=== PATIENT | female | born 1990 | race Caucasian/White ===

== ENCOUNTER 2017-03-28 17:54 | Emergency (ER) | payer OTHER ==
[2017-03-28 18:45] VITALS: PULSE 79
[2017-03-28 18:50] VITALS: PULSE 79
[2017-03-28 18:55] VITALS: PULSE 80
--- NOTE | 2017-03-28 19:03 | PD ---
HPI Chief Complaint contractions, bleeding Date Seen: Mar 28, 2017 Time Seen: 18:30 Travel History International Travel<30 Days: No Contact w/Intl Traveler<30Days: No Known Affected Area: No History of Present Illness HPI PT is a 26 y/o G1 with IUP at 30.4 wks who presents for evaluation of contractions and bleeding. PT states she began to feel some contractions around 4 pm, somewhat irregular and approximately q 10 minutes. She also noted bright red blood on tissue when she went to bathroom, no mucous present. No blood in underwear, but noted again at next void. Pt denies LOF. +FM. reports intercourse yesterday around 4 pm. Denies any complications during the Para: 0 : 1 History Past Medical History Medical History: Denies Significant Hx Past Surgical History Surgical History: No Previous Surgery Family History Family History: Negative Social History Alcohol Use: No Tobacco Use: No Substance Abuse: No Allergies-Medications (Allergen,Severity, Reaction): Coded Allergies: No Known Allergies (Unverified , 03/28/17) Narrative Medication vitamins Review of Systems General / Constitutional: No: Fever, Weight Gain, Weight Loss, Chills, Other Eyes: No: Diploplia, Blurred Vision, Visual changes, Pain, Photophobia, Other HENT: No: Headaches, Vertigo, Dental Difficulties, Lightheadedness, Other Cardiovascular: No: Irregular Rhythm, Chest Pain or Discomfort, Palpitations, Tachycardia, Syncope, Varicosities, Edema, Cyanosis, Other Respiratory: No: Cough, Short of Breath, Wheezing, Other Gastrointestinal: No: Nausea, Vomiting, Diarrhea, Abdominal Pain, Hematemesis, Hematochezia, Constipation, Changes in Bowel Habits, Indigestion, Loss of Appetite, Other Genitourinary: No: Urgency, Frequency, Dysuria, Nocturia, Hematuria, Decreased Urinary Output, Oliguria, Hesitancy, Dribbling, Incontinence, Pelvic Pain, Dyspareunia, Discharge, Menorrhagia, Vaginal Bleeding, Other Musculoskeletal: No: Limited ROM, Weakness, Cramping, Edema, Pain, Other Skin: No Rash, No Itching, No Dryness, No Lumps, No Change in Pigmentation, No Change in Nails, No Alopecia, No Lesions, No Breast Lumps, No Breast Tenderness , No Breast Swelling, No Other Neurologic: No: Weakness, Dizziness, Syncope, Focal Abnormalities, Coordination Problem, Headache, Slurred Speech, Seizures, Other Psychiatric: No: Anxiety, Depression, Suicidal Ideations, Disorder of Thought, Mood Disorder, Substance Abuse, Homicidal Ideation, Other Endocrine: No: Heat Intolerance, Cold Intolerance, Polydipsia, Polyuria, Other Hematologic/Lymphatic: No Easy Bruising, No Lymph Node Enlargement, No Other Physical Exam 119/70, 81, 17, 98.3 Narrative GENERAL: Well-nourished, well-developed patient. SKIN: Warm and dry. HEAD: Normocephalic and atraumatic. EYES: No scleral icterus. No injection or drainage. ENT: No nasal drainage noted. Mucous membranes pink. Airway patent. NECK: Supple, trachea midline. No JVD. CARDIOVASCULAR: Regular rate and rhythm without murmurs, gallops, or rubs. RESPIRATORY: Breath sounds equal bilaterally. No accessory muscle use. ABDOMEN/GI: Abdomen soft, non-tender, bowel sounds present, no rebound, no guarding Gravid GENITOURINARY: External Genitalia: intact and normal in appearance BUS glands: [wnl] Cervix: visually closed, no blood in vault, no active bleeding from cervix Dilatation: fintertip Effacement: 25 Station: high Presentation: - Membranes: intact Uterine Contractions: q 3-5 minutes FHT's: Category: 1 Baseline: 130s Reactive: yes Variability: mod Decels: no EXTREMITIES: No cyanosis or edema. BACK: Nontender without obvious deformity. No CVA tenderness. NEUROLOGICAL: Awake and alert. Motor and sensory grossly within normal limits. Five out of 5 muscle strength in all muscle groups. Normal speech. Data Data Vital Signs Reviewed: Yes Orders Vital Signs (Adult) .ON ADMISSION (03/28/17 18:44) ^ Labor Status (03/28/17 18:44) Urinalysis - C+S If Indicated (03/28/17 18:44) ^ Hydration (03/28/17 18:44) Fibronectin (03/28/17 18:44) Wet Prep Profile (03/28/17 18:44) Group B Beta Strep Scrn (Gbs) (03/28/17 18:44) Labs Laboratory Tests Test 03/28/17 18:35 Urine Color LIGHT-YELLOW Urine Turbidity CLEAR Urine pH 5.5 Urine Specific [place] 1.005 Urine Protein NEG mg/dL Urine Glucose (UA) NEG mg/dL Urine Ketones 10 mg/dL Urine Occult Blood NEG Urine Nitrite NEG Urine Bilirubin NEG Urine Urobilinogen LESS THAN 2.0 MG/DL Urine Leukocyte Esterase NEG Urine RBC LESS THAN 1 /hpf Urine WBC LESS THAN 1 /hpf Urine Squamous Epithelial <1 /hpf Cells Microscopic Urinalysis Comment CULT NOT INDICATED Clue Cells (Wet Prep) NONE SEEN Vaginal Trichomonas (Wet Prep) NONE SEEN Vaginal Yeast (Wet Prep) NONE SEEN Fibronectin NEGATIVE MDM Narrative Course / MDM 26 y/o G1 with IUP at 30.4 wks with contractions and h/o spotting: contractions versus labor --FFN, wet prep, GBS swabs collected --po hydrate FFN neg repeat cervical exam unchanged PTL precautions rec no strenuous activity increase hydration pelvic rest until OB f/u Diagnosis Diagnosis: Primary Impression: uterine contractions in third trimester, antepartum Additional Impression: 30 weeks gestation of Disposition: 01 DISCHARGE HOME Condition: Stable Patient Instructions: Labor (ED), Early Labor Signs (ED) Liv Moon MD Mar 28, 2017 19:03
[2017-03-28 20:15] LABS: BLOOD, URINE NEG (NEG); COMMENT (UR) CULT NOT INDICATED; CULTURE IF INDICATED CULT NOT INDICATED; GLUCOSE,URINE NEG (NEG); KETONE, URINE 10 mg/dL (NEG); NITRITE,URINE NEG (NEG); PH, URINE 5.5 (5.0-8.5); SQUAMOUS EPITHELIAL CELL URINE <1 /hpf (0-5); URINE COLOR LIGHT-YELLOW (YELLW/STRAW)
== END 2017-03-28 21:05 | disposition home or self-care (01) ==
LOC: HOBED 17:54
DX: O47.03 False labor before 37 completed weeks of gestation, third trimester (principal); Z3A.30 30 weeks gestation of pregnancy
CPT/HCPCS: 81001; 82731; 87081; 87210; 99283

== ENCOUNTER 2017-05-25 03:54 | Inpatient (IN) | payer OTHER ==
[2017-05-25] VITALS (122 sets, daily range): BP systolic 105–154; BP diastolic 55–124; PULSE 54–125; RESP 16–20; TEMP 97.8–98.6
--- NOTE | 2017-05-25 04:36 | PD ---
HPI Chief Complaint contractions Travel History International Travel<30 Days: No Contact w/Intl Traveler<30Days: No Known Affected Area: No History of Present Illness HPI 26-year-old , IUP at 38.5 care complicated by GBS positive Patient presents complaining of onset of contractions last evening that increased in intensity and frequency at 2 AM this morning. She reports that at 2 :20 AM the contractions increased in intensity and frequency to every 4-5 minutes and became significantly more painful. There are no aggravating or alleviating factors. There are no attempted treatments she also reports the onset of vaginal bleeding with clots including bleeding that she measured as approximately the size of the palm of her hand. She reports normal movement. She denies any leaking of fluid. She reports that she was checked earlier in the office with her vaginal exam 2 cm dilated. Weeks Gestation: 38 Para: 0 : 1 History Past Medical History Medical History: Denies Significant Hx Obstetric History Obstetric History D Denies any abnormal Pap smears or sexual transmitted infections Past Surgical History Narrative Surgical Denies Family History Narrative Family History Diabetes Social History Alcohol Use: No Tobacco Use: No Substance Abuse: No Allergies-Medications (Allergen,Severity, Reaction): Coded Allergies: No Known Allergies (Unverified , 03/28/17) Review of Systems Except as stated in HPI: all other systems reviewed are Neg Physical Exam Narrative GENERAL: Well-nourished, well-developed patient. SKIN: Warm and dry. HEAD: Normocephalic and atraumatic. EYES: No scleral icterus. No injection or drainage. ENT: No nasal drainage noted. Mucous membranes pink. Airway patent. NECK: Supple, trachea midline. No JVD. CARDIOVASCULAR: Regular rate and rhythm without murmurs, gallops, or rubs. RESPIRATORY: Breath sounds equal bilaterally. No accessory muscle use. BREASTS: Deferred ABDOMEN/GI: Abdomen soft, non-tender, bowel sounds present, no rebound, no guarding Gravid GENITOURINARY: External Genitalia: intact and normal in appearance. Normal BUS. Speculum exam revealed evidence of recent active bleeding with some blood still noted in the vaginal vault although no active bleeding noted on examination. No cervical or vaginal masses were noted. Normal rugated was noted. SVE 4/ complete/-1 with bulging bag of water and anterior to midposition cervix FHT's: Category 1 heart rate tracing with reactive NST. Baseline 120s with good accelerations noted, no decelerations, moderate long-term variability. EXTREMITIES: No cyanosis or edema. BACK: Nontender without obvious deformity. No CVA tenderness. NEUROLOGICAL: Awake and alert. Motor and sensory grossly within normal limits. Five out of 5 muscle strength in all muscle groups. Normal speech. Psychiatric: Grossly normal memory and affect Musculoskeletal: Grossly normal range of motion, muscle strength Data Data Orders Orders Ob (2e) Additional Admit Info (05/25/17 04:25) MDM Plan A/P: 26y/o 1. IUP at 38.5 2. Labor: Patient with regular, painful uterine contractions and moderate vaginal bleeding at term. Patient has had 2 cm cervical change since her previous exam in the office yesterday afternoon. Discussed with Dr. Prieto, will admit to Dr. Prieto for labor at term with expectant management at this time. Discussed risks of vaginal delivery with the patient as well as risks and indications of a delivery. 3. GBS positive: Will order GBS prophylaxis with penicillin G as per protocol 4. well-being: Reassuring testing with reactive NST, FHR reassuring and appropriate for gestational age, continue monitoring 5. Will order place routine labor and delivery admission orders La Kaufman MD May 25, 2017 04:36
[2017-05-25] MEDS ORDERED: LACTATED RINGER'S 1000 ML INJ 1,000 ML IV PRN (04:47)
[2017-05-25] MEDS ORDERED: LIDOCAINE HCL 1% 50 ML VIAL I-DERMAL PRN (05:00)
[2017-05-25] MEDS ORDERED: PENICILLIN G POTASSIUM INJ 5,000,000 UNITS in SODIUM CHLORIDE 0.9% INJ 100 ML IV ONE (05:00)
[2017-05-25] MEDS ORDERED: MINERAL OIL 10 ML VIAL TOPICAL PRN (05:00)
[2017-05-25] MEDS ORDERED: OXYTOCIN 30 UNITS-500ML PREMIX 500 ML IV ONE (05:00)
[2017-05-25] MEDS ORDERED: LIDOCAINE HCL 1% 50 ML VIAL INFIL PRN (05:00)
[2017-05-25] MEDS ORDERED: CITRIC ACID-SODIUM CITRATE LIQ 30 ML UDC PO SCH (05:00)
[2017-05-25] MEDS ORDERED: ONDANSETRON HCL 4 MG/2 ML VIAL IV PRN (05:00)
[2017-05-25] MEDS ORDERED: SODIUM CHLORID 0.9% 500 ML INJ 500 ML IV PRN (05:00)
[2017-05-25] MEDS ORDERED: SODIUM CHLOR 0.9% 1000 ML INJ 1,000 ML IV PRN (05:07)
--- NOTE | 2017-05-25 05:10 | HHI.HP ---
History & Physical H&P Patient Name: Nicho Malik Unit Number: [id number] Date of : 1990 Patient Status: Admitted Inpatient Attending Doctor: Rakel Prieto MD HPI HPI Chief Complaint contractions Travel History International Travel<30 Days: No Contact w/Intl Traveler<30Days: No Known Affected Area: No History of Present Illness HPI 26-year-old , IUP at 38.5 care complicated by GBS positive Patient presents complaining of onset of contractions last evening that increased in intensity and frequency at 2 AM this morning. She reports that at 2 :20 AM the contractions increased in intensity and frequency to every 4-5 minutes and became significantly more painful. There are no aggravating or alleviating factors. There are no attempted treatments she also reports the onset of vaginal bleeding with clots including bleeding that she measured as approximately the size of the palm of her hand. She reports normal movement. She denies any leaking of fluid. She reports that she was checked earlier in the office with her vaginal exam 2 cm dilated. Weeks Gestation: 38 Para: 0 : 1 History (Limited) History Past Medical History Medical History: Denies Significant Hx Obstetric History Obstetric History D Denies any abnormal Pap smears or sexual transmitted infections Past Surgical History Narrative Surgical Denies Family History Narrative Family History Diabetes Social History Alcohol Use: No Tobacco Use: No Substance Abuse: No Allergies-Medications Allergies-Medications (Allergen,Severity, Reaction): Coded Allergies: No Known Allergies (Unverified , 03/28/17) ROS Review of Systems Except as stated in HPI: all other systems reviewed are Neg Physical Exam Physical Exam Narrative GENERAL: Well-nourished, well-developed patient. SKIN: Warm and dry. HEAD: Normocephalic and atraumatic. EYES: No scleral icterus. No injection or drainage. ENT: No nasal drainage noted. Mucous membranes pink. Airway patent. NECK: Supple, trachea midline. No JVD. CARDIOVASCULAR: Regular rate and rhythm without murmurs, gallops, or rubs. RESPIRATORY: Breath sounds equal bilaterally. No accessory muscle use. BREASTS: Deferred ABDOMEN/GI: Abdomen soft, non-tender, bowel sounds present, no rebound, no guarding Gravid GENITOURINARY: External Genitalia: intact and normal in appearance. Normal BUS. Speculum exam revealed evidence of recent active bleeding with some blood still noted in the vaginal vault although no active bleeding noted on examination. No cervical or vaginal masses were noted. Normal rugated was noted. SVE 4/ complete/-1 with bulging bag of water and anterior to midposition cervix FHT's: Category 1 heart rate tracing with reactive NST. Baseline 120s with good accelerations noted, no decelerations, moderate long-term variability. EXTREMITIES: No cyanosis or edema. BACK: Nontender without obvious deformity. No CVA tenderness. NEUROLOGICAL: Awake and alert. Motor and sensory grossly within normal limits. Five out of 5 muscle strength in all muscle groups. Normal speech. Psychiatric: Grossly normal memory and affect Musculoskeletal: Grossly normal range of motion, muscle strength Data Data Data Orders Orders Ob (2e) Additional Admit Info (05/25/17 04:25) MDM MDM Plan A/P: 26y/o 1. IUP at 38.5 2. Labor: Patient with regular, painful uterine contractions and moderate vaginal bleeding at term. Patient has had 2 cm cervical change since her previous exam in the office yesterday afternoon. Discussed with Dr. Prieto, will admit to Dr. Prieto for labor at term with expectant management at this time. Discussed risks of vaginal delivery with the patient as well as risks and indications of a delivery. 3. GBS positive: Will order GBS prophylaxis with penicillin G as per protocol 4. well-being: Reassuring testing with reactive NST, FHR reassuring and appropriate for gestational age, continue monitoring 5. Will order place routine labor and delivery admission orders La Kaufman MD May 25, 2017 04:36 La Kaufman MD May 25, 2017 05:10
[2017-05-25 05:26] LABS: AUTOMATED NEUTROPHIL # 5.1 TH/MM3 (1.8-7.7); BASOPHIL % 0.3 % (0.0-2.0); EOSINOPHIL # 0.1 TH/MM3 (0-0.4); EOSINOPHIL % 1.7 % (0.0-4.0); HEMATOCRIT 37.6 % (35.0-46.0); HEMO FLAGS DIFF FINAL; LYMPH % 23.6 % (9.0-44.0); LYMPHOCYTE # 1.8 TH/MM3 (1.0-4.8); MEAN CELL VOLUME 90.2 FL (80.0-100.0); MEAN CORPUSCULAR HEMOGLOBIN 30.5 PG (27.0-34.0); MEAN CORPUSCULAR HGB CONC 33.8 % (32.0-36.0); MONO % 7.6 % (0.0-8.0); NEUT % 66.8 % (16.0-70.0); PLATELET COUNT 207 TH/MM3 (150-450); RED BLOOD COUNT 4.17 MIL/MM3 (4.00-5.30); WHITE BLOOD COUNT 7.7 TH/MM3 (4.0-11.0)
[2017-05-25] MEDS: LACTATED RINGER'S 1000 ML INJ 1,000 ML IV SCH ×3 (06:03→17:52)
[2017-05-25 06:50] LABS: BACTERIA, URINE RARE /hpf; BLOOD, URINE MOD (NEG); COMMENT (UR) CULT NOT INDICATED; CULTURE IF INDICATED CULT NOT INDICATED; GLUCOSE,URINE NEG (NEG); KETONE, URINE NEG (NEG); NITRITE,URINE NEG (NEG); SQUAMOUS EPITHELIAL CELL URINE <1 /hpf (0-5); URINE COLOR LIGHT-YELLOW (YELLW/STRAW)
--- NOTE | 2017-05-25 08:41 | PD.LABORPN ---
Subjective Subjective doing well jie regularly Objective Vital Signs Vital Signs Date Time Temp Pulse Resp B/P (MAP) Pulse Ox O2 Delivery O2 Flow Rate FiO2 05/25/17 07:56 67 124/76 (92) 05/25/17 07:05 18 05/25/17 07:02 74 124/85 (98) 05/25/17 05:30 20 Objective 4/100/0 pelvis clinically adequate Weeks Gestation: 38 Gest Age Assessed Date: May 25, 2017 Gest Age Assessed Time: 08:40 Pt started active labor?: Yes Active labor start date: May 25, 2017 Active labor start time: 08:40 Medical induction of labor?: No Artificial rupture of membrane: Yes Artificial ROM date: May 25, 2017 Artifical ROM time: 08:40 Assessment/Plan Assessment and Plan anticipate encourage birthing ball epidural prn social issues with Rakel Way MD May 25, 2017 08:41
[2017-05-25] MEDS ORDERED: fentaNYL 2MCG-BUPIV 0.125% INJ 100 ML ONE (09:02)
[2017-05-25] MEDS ORDERED: ePHEDrine/NS 25 MG/5 ML SYR ONE (09:03)
[2017-05-25] MEDS: PENICILLIN G POTASSIUM INJ 2,500,000 UNITS in SODIUM CHLORIDE 0.9% INJ 100 ML IV SCH ×3 (10:11→17:52)
[2017-05-25] MEDS ORDERED: NO SYSTEM NARCOTICS PRN (10:15)
[2017-05-25] MEDS ORDERED: ePHEDrine/NS 25 MG/5 ML SYR IV PRN (10:15)
[2017-05-25] MEDS ORDERED: DO NOT ADMINISTER ANTICOAGULANTS PRN (10:15)
[2017-05-25] MEDS ORDERED: OXYTOCIN 30 UNITS/NS 500ML PREMIX IV SCH (10:30)
[2017-05-25] MEDS: fentaNYL 2MCG-BUPIV 0.125% 100 ML EPIDURAL SCH ×2 (11:36→17:53)
[2017-05-25] MEDS ORDERED: DIPHTH/TETANUS/ACEL PERTUSSIS (BOOSTER) 0.5 ML VIAL/PFS IM ONE (16:00)
[2017-05-25] MEDS ORDERED: MEASLES, MUMPS, RUBELLA VACCINE 0.5 ML VIAL SQ ONE (16:00)
[2017-05-25] MEDS ORDERED: ALUMINUM/MAGNESIUM/SIMETH 30 ML CUP PO PRN (19:15)
[2017-05-25] MEDS ORDERED: BENZOCAINE 20% TOPICAL SPRAY 60 ML CAN TOPICAL PRN (19:15)
[2017-05-25] MEDS ORDERED: SODIUM CHLORIDE 0.9% FLUSH 10 ML FLUSH IV FLUSH PRN (19:15)
[2017-05-25] MEDS ORDERED: ZOLPIDEM TARTRATE 5 MG TAB PO PRN (19:15)
[2017-05-25] MEDS ORDERED: ONDANSETRON ODT 4 MG TAB PO PRN (19:15)
[2017-05-25] MEDS ORDERED: ACETAMINOPHEN 325 MG TAB PO PRN (19:15)
[2017-05-25] MEDS ORDERED: DOCUSATE SODIUM 50 MG/SENNA 8.6 MG TAB PO PRN (19:15)
[2017-05-25] MEDS ORDERED: WITCH HAZEL 50%/GLYCERIN 12.5% 40 PAD JAR TOPICAL PRN (19:15)
[2017-05-25] MEDS ORDERED: oxyCODONE/ACETAMINOPHEN 5 MG/325 MG TAB PO PRN (19:15)
[2017-05-25] MEDS ORDERED: OXYTOCIN 30 UNITS-500ML PREMIX 500 ML IV SCH (19:15)
[2017-05-25] MEDS ORDERED: KETOROLAC TROMETHAMINE 60 MG/2 ML (IM) VIAL IM PRN (19:30)
[2017-05-25] MEDS: CLINDAMYCIN INJ 600 MG in SODIUM CHLORIDE 0.9% INJ 100 ML IV SCH (20:13)
[2017-05-25] MEDS ORDERED: SODIUM CHLORIDE 0.9% FLUSH 10 ML FLUSH IV FLUSH SCH (21:00)
--- NOTE | 2017-05-25 21:38 | PD.OB.DELI ---
Weeks gestation: 38 Gest age assessed date: May 25, 2017 Gest age assessed time: 08:40 Pt started active labor?: Yes Active labor start date: May 25, 2017 Active labor start time: 08:40 Medical induction of labor?: No Artificial rupture of membrane: Yes Artificial ROM date: May 25, 2017 Artifical ROM time: 08:40 Anesthesia: Epidural Episiotomy: Midline Vaginal Delivery: Normal, Vacuum Presentation: Occiput anterior Nuchal Cord: None Delayed cord clamping (45 sec): Yes : Female Delivery date: May 25, 2017 Delivery time: 18:45 One Minute : 9 Five Minute : 9 Weight: 7 13 Placenta: Spontaneous delivery Laceration: 4 deg, Involving anal sphincter, Into rectum Estimated blood loss: 250 Additional Information vaccum over edematous perineum due to maternal exhaustion with extension of small MLE into rectum. Easily repaired in layers with excellent results and minimal bleeding or discomgort. Baby rotated from ROP to LAURA at very last ten minutes. Mom and baby well. Rakel Prieto MD May 25, 2017 21:38
[2017-05-25] MEDS: oxyCODONE/ACETAMINOPHEN 5 MG/325 MG TAB PO PRN (22:37)
[2017-05-25] MEDS: IBUPROFEN 600 MG TAB PO PRN (22:38)
[2017-05-25] MEDS: DOCUSATE SODIUM 50 MG/SENNA 8.6 MG TAB PO SCH (22:38)
[2017-05-26] MEDS: CLINDAMYCIN INJ 600 MG in SODIUM CHLORIDE 0.9% INJ 100 ML IV SCH (03:12)
[2017-05-26] MEDS: oxyCODONE/ACETAMINOPHEN 5 MG/325 MG TAB PO PRN ×3 (06:08→18:46)
[2017-05-26] MEDS: IBUPROFEN 600 MG TAB PO PRN ×3 (06:08→18:45)
[2017-05-26 08:00] VITALS: BP 106/75; PULSE 61; RESP 18; TEMP 97.8
[2017-05-26] MEDS: POLYETHYLENE GLYCOL 17 GM PKG PO SCH (09:00)
--- NOTE | 2017-05-26 09:19 | HHI.OB ---
Subjective Post Day: 1 Remarks doing well, sleepy comfortable despite her fourth degree nursing may want discharge with storm coming if infant allowed to leave' otherwise first thing in am. Objective Vitals/I&O Vital Signs Date Time Temp Pulse Resp B/P (MAP) Pulse Ox O2 Delivery O2 Flow Rate FiO2 05/26/17 08:00 97.8 61 18 106/75 (85) 05/25/17 22:30 98.3 67 16 148/83 (104) 05/25/17 21:00 16 05/25/17 21:00 57 133/82 (99) 05/25/17 20:35 18 05/25/17 20:32 57 127/78 (94) 05/25/17 20:30 65 136/91 (106) 05/25/17 20:20 18 05/25/17 20:15 136/84 (101) 05/25/17 20:15 62 05/25/17 20:09 61 139/81 (100) 05/25/17 20:05 16 05/25/17 19:52 75 130/74 (92) 05/25/17 19:45 16 05/25/17 19:30 79 137/83 (101) 05/25/17 19:30 16 05/25/17 19:15 87 135/92 (106) 05/25/17 19:01 84 139/78 (98) 05/25/17 18:31 112 131/84 (100) 05/25/17 18:30 125 140/124 (129) 05/25/17 18:30 16 05/25/17 18:15 106 143/79 (100) 05/25/17 18:15 16 05/25/17 18:00 16 05/25/17 18:00 93 145/94 (111) 05/25/17 17:53 18 05/25/17 17:45 95 118/96 (103) 05/25/17 17:45 98.4 05/25/17 17:30 70 116/67 (83) 05/25/17 17:16 102 132/75 (94) 05/25/17 16:45 73 150/106 (121) 05/25/17 16:30 65 137/67 (90) 05/25/17 16:16 68 154/96 (115) 05/25/17 16:00 68 146/88 (107) 05/25/17 16:00 97.8 18 05/25/17 15:45 75 126/85 (99) 05/25/17 15:45 78 05/25/17 15:40 63 05/25/17 15:35 66 05/25/17 15:30 57 117/64 (81) 05/25/17 15:30 57 05/25/17 15:25 62 05/25/17 15:16 63 126/69 (88) 05/25/17 15:15 60 05/25/17 15:10 65 05/25/17 15:05 72 05/25/17 15:00 98.0 18 05/25/17 15:00 75 05/25/17 15:00 75 147/89 (108) 05/25/17 14:55 81 05/25/17 14:50 79 05/25/17 14:45 84 05/25/17 14:45 82 133/85 (101) 05/25/17 14:40 74 05/25/17 14:35 71 05/25/17 14:30 73 05/25/17 14:30 78 121/68 (85) 05/25/17 14:25 75 05/25/17 14:20 70 05/25/17 14:15 74 120/62 (81) 05/25/17 14:15 70 05/25/17 14:10 70 05/25/17 14:05 90 05/25/17 14:01 73 123/79 (94) 05/25/17 14:00 81 05/25/17 14:00 98.5 05/25/17 14:00 16 05/25/17 13:55 78 05/25/17 13:50 81 05/25/17 13:45 84 137/87 (104) 05/25/17 13:45 79 05/25/17 13:40 84 05/25/17 13:35 83 05/25/17 13:30 83 123/86 (98) 05/25/17 13:30 80 05/25/17 13:25 78 05/25/17 13:20 73 05/25/17 13:15 66 05/25/17 13:15 65 112/69 (83) 05/25/17 13:10 69 05/25/17 13:05 74 05/25/17 13:00 81 132/71 (91) 05/25/17 13:00 63 05/25/17 12:55 80 05/25/17 12:50 78 05/25/17 12:46 71 139/67 (91) 05/25/17 12:45 18 05/25/17 12:45 71 05/25/17 12:40 79 05/25/17 12:35 84 05/25/17 12:30 78 05/25/17 12:30 87 121/73 (89) 05/25/17 12:25 73 05/25/17 12:20 66 05/25/17 12:16 74 119/60 (79) 05/25/17 12:15 65 05/25/17 12:10 64 05/25/17 12:05 82 05/25/17 12:00 18 05/25/17 12:00 77 05/25/17 12:00 98.6 05/25/17 12:00 77 124/74 (91) 05/25/17 11:55 73 05/25/17 11:50 74 05/25/17 11:45 71 121/77 (92) 05/25/17 11:45 73 05/25/17 11:40 71 05/25/17 11:36 18 05/25/17 11:35 64 05/25/17 11:30 74 124/80 (95) 05/25/17 11:30 68 05/25/17 11:25 78 05/25/17 11:20 77 127/75 (92) 05/25/17 11:20 64 05/25/17 11:16 136/114 (121) 05/25/17 11:15 69 05/25/17 11:11 85 118/80 (93) 05/25/17 11:10 85 05/25/17 11:05 75 113/70 (84) 05/25/17 11:05 84 05/25/17 11:00 82 129/75 (93) 05/25/17 11:00 71 05/25/17 10:55 80 05/25/17 10:55 68 112/75 (87) 05/25/17 10:50 64 05/25/17 10:50 64 113/74 (87) 05/25/17 10:45 74 119/69 (86) 05/25/17 10:45 61 05/25/17 10:40 76 114/63 (80) 05/25/17 10:40 62 05/25/17 10:35 58 112/65 (81) 05/25/17 10:35 59 05/25/17 10:30 67 112/64 (80) 05/25/17 10:30 57 05/25/17 10:25 61 105/63 (77) 05/25/17 10:25 61 05/25/17 10:20 61 05/25/17 10:20 67 109/62 (78) 05/25/17 10:15 61 05/25/17 10:15 58 108/55 (72) 05/25/17 10:10 59 05/25/17 10:10 63 109/58 (75) 05/25/17 10:05 60 05/25/17 10:05 57 107/64 (78) 05/25/17 10:00 97.8 16 05/25/17 10:00 54 05/25/17 10:00 58 114/68 (83) 05/25/17 09:55 63 05/25/17 09:55 58 120/65 (83) 05/25/17 09:51 61 116/69 (85) 05/25/17 09:50 56 05/25/17 09:49 57 117/71 (86) 05/25/17 09:45 59 05/25/17 09:44 56 113/62 (79) 05/25/17 09:42 64 110/68 (82) 05/25/17 09:40 61 05/25/17 09:40 69 109/62 (78) 05/25/17 09:38 66 112/57 (75) 05/25/17 09:36 65 117/65 (82) 05/25/17 09:35 60 05/25/17 09:34 59 115/62 (79) 05/25/17 09:32 59 113/60 (77) 05/25/17 09:31 67 123/68 (86) 05/25/17 09:30 78 Objective Remarks GENERAL: Well-nourished, well-developed patient. CARDIOVASCULAR: Regular rate and rhythm without murmurs, gallops, or rubs. RESPIRATORY: Breath sounds equal bilaterally. No accessory muscle use. ABDOMEN/GI: Abdomen soft, non-tender. Fundus: Firm, non-tender at umbilicus. GENITOURINARY: Light to moderate bleeding. EXTREMITIES: No cyanosis or edema, non-tender, without signs of DVT. Medications and IVs Current Medications Medications (Trade) Dose Ordered Sig/Wilfredo Route Start Time Stop Time Status Last Admin Lactated Ringer's 1,000 ml @ 125 mls/hr Q8H IV 05/25/17 04:47 05/25/17 17:52 Lactated Ringer's 1,000 ml @ 3,000 mls/hr Q20M PRN IV 05/25/17 04:47 Sodium Chloride 500 ml @ 1,000 mls/hr ONCE PRN IV 05/25/17 05:00 05/27/17 04:59 Sodium Chloride 1,000 ml @ 100 mls/hr Q10H PRN IV 05/25/17 05:07 (Xylocaine 1% Inj (50 ml)) 0.1 ml UNSCH X1 PRN I-DERMAL 05/25/17 05:00 05/28/17 04:59 (Bicitra Liq) 30 ml SHEET LAYER PO 05/25/17 05:00 05/29/17 04:59 (Zofran Inj) 4 mg Q6H PRN IV 05/25/17 05:00 (fentaNYL INJ) 50 mcg Q1H PRN IV PUSH 05/25/17 05:00 (fentaNYL INJ) 100 mcg Q1H PRN IV PUSH 05/25/17 05:00 Penicillin G Potassium 0393210 units/Sodium Chloride 100 ml @ 200 mls/hr Q4H IV 05/25/17 09:00 05/25/17 17:52 (Xylocaine 1% Inj (50 ml)) 10 ml UNSCH X1 PRN INFIL 05/25/17 05:00 05/27/17 04:59 (Muri-Lube Oil) 10 ml UNSCH PRN TOPICAL 05/25/17 05:00 Miscellaneous Information No systemic narcotics to be given except... UNSCH PRN .XX 05/25/17 10:15 05/26/17 10:14 Miscellaneous Information DO NOT ADMINISTER ANY ANTICOAGUL... UNSCH PRN .XX 05/25/17 10:15 05/26/17 10:14 Fentanyl/ Bupivacaine HCl 100 ml @ 11 mls/hr TITRATE EPIDURAL 05/25/17 10:15 05/25/17 17:53 (ePHEDrine/NS 25 MG/5 ML SYR) 10 mg UNSCH PRN IV 05/25/17 10:15 05/26/17 10:14 Oxytocin 500 ml @ 0 mls/hr TITRATE IV 05/25/17 10:30 05/25/17 11:00 (NS Flush) 2 ml BID IV FLUSH 05/25/17 21:00 (NS Flush) 2 ml UNSCH PRN IV FLUSH 05/25/17 19:15 (Tylenol) 650 mg Q4H PRN PO 05/25/17 19:15 (Motrin) 600 mg Q6H PRN PO 05/25/17 19:15 05/26/17 06:08 (Percocet 5-325 Mg) 1 tab Q4H PRN PO 05/25/17 19:15 05/26/17 06:08 (Percocet 5-325 Mg) 2 tab Q4H PRN PO 05/25/17 19:15 (Americaine 20% Top Spr) 1 spray Q4H PRN TOPICAL 05/25/17 19:15 (Tucks Pads) 1 applic QID PRN TOPICAL 05/25/17 19:15 (Sarah-Colace) 2 tab Q12H PRN PO 05/25/17 19:15 (Ambien) 5 mg HS PRN PO 05/25/17 19:15 (Mag-Al Plus Susp Liq) 15 ml Q8H PRN PO 05/25/17 19:15 (Zofran Odt) 4 mg Q6H PRN PO 05/25/17 19:15 (Miralax) 17 gm DAILY PO 05/26/17 09:00 (Sarah-Colace) 2 tab BID PO 05/25/17 21:00 05/25/17 22:38 (Toradol Inj) 30 mg Q6H PRN IM 05/25/17 19:30 05/26/17 19:29 Assessment/Plan Assessment and Plan stable for maternal discharge with instructions on care of fourth degree tear. RTO 1-2 weeks Rakel Prieto MD May 26, 2017 09:19
[2017-05-26] MEDS ORDERED: OXYC1TAB63 PO (09:22)
[2017-05-26] MEDS ORDERED: IBUP-232 PO (09:22)
--- NOTE | 2017-05-26 09:22 | HHI.DCPOC ---
Discharge Care Plan Report Symptoms to Your Doctor -Temperature above 100.5 degrees -Redness, of incision or excessive or foul smelling drainage -Unusual pain or calf pain -Increased vaginal bleeding -Painful or difficulty urinating -Feelings of extreme sadness or anxiety after 2 weeks Goals to Promote Your Health * To prevent worsening of your condition and complications * To maintain your health at the optimal level Directions to Meet Your Goals Take your medications as prescribed Follow your dietary instruction Follow activity as directed Ensure plenty of rest for recovery Drink fluids for hydration Keep your appointments as scheduled Take your immunizations and boosters as scheduled If your symptoms worsen call your PCP, if no PCP go to Urgent Care Center or Emergency Room Smoking is Dangerous to Your Health. Avoid second hand smoke Call the 24-hour crisis hotline for domestic abuse at Rakel Prieto MD May 26, 2017 09:22
[2017-05-26] MEDS: DOCUSATE SODIUM 50 MG/SENNA 8.6 MG TAB PO SCH (12:39)
[2017-05-26 19:10] VITALS: BP 147/84; PULSE 57; RESP 16; TEMP 98
[2017-05-27] MEDS: IBUPROFEN 600 MG TAB PO PRN ×2 (00:39→07:01)
[2017-05-27] MEDS: oxyCODONE/ACETAMINOPHEN 5 MG/325 MG TAB PO PRN ×2 (00:39→07:00)
--- NOTE | 2017-05-27 07:50 | HHI.DCPOC ---
Discharge Care Plan Report Symptoms to Your Doctor -Temperature above 100.5 degrees -Redness, of incision or excessive or foul smelling drainage -Unusual pain or calf pain -Increased vaginal bleeding -Painful or difficulty urinating -Feelings of extreme sadness or anxiety after 2 weeks Goals to Promote Your Health * To prevent worsening of your condition and complications * To maintain your health at the optimal level Directions to Meet Your Goals Take your medications as prescribed Follow your dietary instruction Follow activity as directed Ensure plenty of rest for recovery Drink fluids for hydration Keep your appointments as scheduled Take your immunizations and boosters as scheduled If your symptoms worsen call your PCP, if no PCP go to Urgent Care Center or Emergency Room Smoking is Dangerous to Your Health. Avoid second hand smoke Call the 24-hour crisis hotline for domestic abuse at Rakel Prieto MD May 27, 2017 07:50
--- NOTE | 2017-05-27 08:26 | HHI.OB ---
Subjective Post Day: 2 Remarks feeling much better has had a bowel movement nursing well ready to go home and prepare for storm Objective Vitals/I&O Vital Signs Date Time Temp Pulse Resp B/P (MAP) Pulse Ox O2 Delivery O2 Flow Rate FiO2 05/26/17 19:10 98.0 05/26/17 19:10 57 16 147/84 (105) Objective Remarks GENERAL: Well-nourished, well-developed patient. CARDIOVASCULAR: Regular rate and rhythm without murmurs, gallops, or rubs. RESPIRATORY: Breath sounds equal bilaterally. No accessory muscle use. ABDOMEN/GI: Abdomen soft, non-tender. Fundus: Firm, non-tender at umbilicus. GENITOURINARY: Light to moderate bleeding. EXTREMITIES: No cyanosis or edema, non-tender, without signs of DVT. Medications and IVs Current Medications Medications (Trade) Dose Ordered Sig/Wilfredo Route Start Time Stop Time Status Last Admin Lactated Ringer's 1,000 ml @ 125 mls/hr Q8H IV 05/25/17 04:47 05/25/17 17:52 Lactated Ringer's 1,000 ml @ 3,000 mls/hr Q20M PRN IV 05/25/17 04:47 Sodium Chloride 1,000 ml @ 100 mls/hr Q10H PRN IV 05/25/17 05:07 (Xylocaine 1% Inj (50 ml)) 0.1 ml UNSCH X1 PRN I-DERMAL 05/25/17 05:00 05/28/17 04:59 (Bicitra Liq) 30 ml [employer] PO 05/25/17 05:00 05/29/17 04:59 (Zofran Inj) 4 mg Q6H PRN IV 05/25/17 05:00 (fentaNYL INJ) 50 mcg Q1H PRN IV PUSH 05/25/17 05:00 (fentaNYL INJ) 100 mcg Q1H PRN IV PUSH 05/25/17 05:00 Penicillin G Potassium [id number] units/Sodium Chloride 100 ml @ 200 mls/hr Q4H IV 05/25/17 09:00 05/25/17 17:52 (Muri-Lube Oil) 10 ml UNSCH PRN TOPICAL 05/25/17 05:00 Fentanyl/ Bupivacaine HCl 100 ml @ 11 mls/hr TITRATE EPIDURAL 05/25/17 10:15 05/25/17 17:53 Oxytocin 500 ml @ 0 mls/hr TITRATE IV 05/25/17 10:30 05/25/17 11:00 (NS Flush) 2 ml BID IV FLUSH 05/25/17 21:00 (NS Flush) 2 ml UNSCH PRN IV FLUSH 05/25/17 19:15 (Tylenol) 650 mg Q4H PRN PO 05/25/17 19:15 (Motrin) 600 mg Q6H PRN PO 05/25/17 19:15 05/27/17 07:01 (Percocet 5-325 Mg) 1 tab Q4H PRN PO 05/25/17 19:15 05/27/17 07:00 (Percocet 5-325 Mg) 2 tab Q4H PRN PO 05/25/17 19:15 (Americaine 20% Top Spr) 1 spray Q4H PRN TOPICAL 05/25/17 19:15 05/27/17 07:04 (Tucks Pads) 1 applic QID PRN TOPICAL 05/25/17 19:15 05/27/17 07:04 (Sarah-Colace) 2 tab Q12H PRN PO 05/25/17 19:15 (Ambien) 5 mg HS PRN PO 05/25/17 19:15 (Mag-Al Plus Susp Liq) 15 ml Q8H PRN PO 05/25/17 19:15 (Zofran Odt) 4 mg Q6H PRN PO 05/25/17 19:15 (Miralax) 17 gm DAILY PO 05/26/17 09:00 (Sarah-Colace) 2 tab BID PO 05/25/17 21:00 05/26/17 12:39 Assessment/Plan Assessment and Plan stable and ready for discharge with fourth degree repair looking good. RTO i week Rakel Prieto MD May 27, 2017 08:26
[2017-05-27] MEDS ORDERED: MIRA3350 PO (08:27)
[2017-05-27 09:00] VITALS: BP 121/73; PULSE 63; RESP 18; TEMP 97.9
[2017-05-27] MEDS: POLYETHYLENE GLYCOL 17 GM PKG PO SCH (09:00)
[2017-05-27] MEDS: DOCUSATE SODIUM 50 MG/SENNA 8.6 MG TAB PO SCH (09:05)
== END 2017-05-27 11:02 | disposition home or self-care (01) | DRG 775 ==
LOC: HOBED 03:54 → H2EB 04:25 → H1EA 21:53
PROVIDERS: ADMIT Obstetrics & Gynecology; ATTEND Obstetrics & Gynecology
PROC: 10D07Z6 Extraction of Products of Conception, Vacuum, Via Natural or Artificial Opening (ICD-10-PCS; principal; 2017-05-25)
PROC: 0DQP0ZZ Repair Rectum, Open Approach (ICD-10-PCS; 2017-05-25)
PROC: 0W8NXZZ Division of Female Perineum, External Approach (ICD-10-PCS; 2017-05-25)
DX: O99.824 Streptococcus B carrier state complicating childbirth (principal); Z37.0 Single live birth; O75.81 Maternal exhaustion complicating labor and delivery; O70.3 Fourth degree perineal laceration during delivery; Z3A.38 38 weeks gestation of pregnancy
CPT/HCPCS: 59025; 81001; 85025; 86900; 86901; J2540; J2590; J7120